=== PATIENT | female | born 1995 | race Caucasian/White ===

== ENCOUNTER 2016-12-02 11:53 | Inpatient (IN) | payer MEDICAID ==
[2016-12-02] VITALS (9 sets, daily range): BP systolic 95–138; RESP 16–20; TEMP 98.2; Ht 162.6 cm; Wt 110.2 kg
[~2016-12-02] VITALS: Ht 162.6 cm; Wt 110.2 kg
[~2016-12-02 11:53] MED LIST: LIDOCAINE/EPI 1.5% MPF 30 ML VIAL EPIDURAL ONE
[2016-12-02] MEDS ORDERED: ONDANSETRON 4 MG VIAL IV PRN (12:25)
[2016-12-02] MEDS ORDERED: METOCLOPRAMIDE 10 MG/2 ML VIAL IV PUSH PRN (12:25)
[2016-12-02] MEDS ORDERED: FAMOTIDINE 20 MG TAB PO PRN (12:25)
[2016-12-02] MEDS ORDERED: ALU/MAG/SIM 30 ML UDC PO PRN (12:25)
[2016-12-02] MEDS ORDERED: TERBUTALINE 1 MG/ML VIAL SUBQ PRN (12:25)
[2016-12-02] MEDS ORDERED: PHARMACY TO DOSE GENTAMICIN IV PRN (12:25)
[2016-12-02] MEDS ORDERED: FAMOTIDINE 20 MG INJ IV PRN (12:25)
[2016-12-02] MEDS ORDERED: LIDOCAINE 1% 30 ML PF INFILTRATE ONE (12:25)
[2016-12-02] MEDS ORDERED: CLINDAMYCIN 900 MG in DEXTROSE 5% 50 ML IV PRN (12:25)
[2016-12-02] MEDS ORDERED: ACETAMINOPHEN 325 MG TAB PO PRN (12:25)
[2016-12-02] MEDS ORDERED: PROMETHAZINE 25 MG/ML VIAL IV PRN (12:25)
[2016-12-02] MEDS: LACT RINGERS 1,000 ML IV SCH ×3 (12:39→16:08)
[2016-12-02] MEDS ORDERED: GENTAMICIN 380 MG in SODIUM CHLORIDE 0.9% 100 ML IV PRN (12:45)
[2016-12-02] MEDS ORDERED: FENTANYL 100 MCG/2 ML AMP ONE ×2 (13:12→19:08)
[2016-12-02] MEDS ORDERED: ROPIV/FENT 0.2%-2MCG/ML 100 ML EPIDURAL ONE (13:12)
[2016-12-02] MEDS ORDERED: ROPIV/FENT 0.2%-2MCG/ML 100 ML EPIDURAL SCH (13:45)
[2016-12-02] MEDS ORDERED: FENTANYL 100 MCG/2 ML AMP EPIDURAL ONE (13:45)
[2016-12-02] MEDS ORDERED: LACT RINGERS 500 ML IV PRN (13:45)
[2016-12-02] MEDS ORDERED: LACT RINGERS 500 ML IV ONE (13:45)
[2016-12-02] MEDS ORDERED: SODIUM CHLORIDE 0.9% 500 ML IV PRN (13:45)
[2016-12-02] MEDS: OXYTOCIN 15 UNITS/250 ML NS 250 ML IV SCH (17:58)
[2016-12-02] MEDS ORDERED: OXYTOCIN 15 UNITS/250 ML NS 250 ML IV SCH (18:45)
[2016-12-02] MEDS ORDERED: MEASLES,MUMPS,RUBELLA VAC SUBQ.VACC ONE (18:45)
[2016-12-02] MEDS ORDERED: MAG HYDROX 30 ML UDC PO PRN (18:45)
[2016-12-02] MEDS ORDERED: TDaP 0.5 ML VIAL IM.VACC ONE (18:45)
[2016-12-02] MEDS ORDERED: ZOLPIDEM 5 MG TAB PO PRN (18:45)
[2016-12-02] MEDS ORDERED: FENTANYL EPIDURAL ONE (19:09)
[2016-12-02] MEDS ORDERED: ROPIVACAINE EPIDURAL ONE (19:09)
[2016-12-02] MEDS ORDERED: **ONLY ANESTEHSIA MAY ORDER OPIATES WHILE ON EPIDURAL XX SCH (20:00)
[2016-12-02] MEDS: DERMOPLAST SPRAY TOPICAL PRN (20:36)
[2016-12-02] MEDS: ASTRINGENT MED PADS 40'S TOPICAL PRN (20:36)
[2016-12-02] MEDS: Ibuprofen 600 MG TAB PO PRN (20:37)
[2016-12-02] MEDS: OXYCODONE/APAP 5/325 TAB PO PRN ×2 (20:37→23:30)
[2016-12-03] VITALS (7 sets, daily range): BP systolic 105–124; RESP 18; TEMP 97.6–98
[2016-12-03] MEDS: Ibuprofen 600 MG TAB PO PRN (05:29)
[2016-12-03] MEDS: DOCUSATE SOD 100 MG CAP PO SCH (09:00)
[2016-12-04] MEDS: DERMOPLAST SPRAY TOPICAL PRN (00:45)
[2016-12-04] MEDS: ASTRINGENT MED PADS 40'S TOPICAL PRN (00:45)
[2016-12-04 05:41] VITALS: BP_SYST 105; RESP 18; TEMP 98.1
[2016-12-04] MEDS: Ibuprofen 600 MG TAB PO PRN (06:08)
[2016-12-04] MEDS: DOCUSATE SOD 100 MG CAP PO SCH (08:23)
[2016-12-04 09:14] VITALS: BP_SYST 130; TEMP 98
[2016-12-04 09:15] VITALS: RESP 16
[2016-12-04 10:51] VITALS: BP_SYST 130; RESP 16; TEMP 98
== END 2016-12-04 17:25 | disposition home or self-care (01) | DRG 775 ==
LOC: LDOP 11:53 → LD 12:37 → OB 20:50
PROVIDERS: ADMIT Obstetrics & Gynecology; ATTEND Obstetrics & Gynecology
PROC: 10E0XZZ Delivery of Products of Conception, External Approach (ICD-10-PCS; principal; 2016-12-02)
PROC: 0HQ9XZZ Repair Perineum Skin, External Approach (ICD-10-PCS; 2016-12-02)
DX: O70.0 First degree perineal laceration during delivery (principal); Z37.0 Single live birth; Z3A.40 40 weeks gestation of pregnancy
CPT/HCPCS: 85025